=== PATIENT | female | born 1995 | race Caucasian/White ===

== ENCOUNTER 2025-11-10 00:21 | Emergency (ER) | payer OTHER ==
[~2025-11-10] VITALS: Ht 154.9 cm; Wt 63.5 kg
[2025-11-10 00:31] VITALS: O2SAT 98
[2025-11-10] MEDS ORDERED: ACETAMINOPHEN 500MG TABLET PO ONE (01:30)
[2025-11-10] MEDS ORDERED: DIPHENHYDRAMINE 12.5MG/5ML UDC PO ONE (01:30)
[2025-11-10] MEDS ORDERED: METOCLOPRAMIDE HCL 10MG TABLET PO ONE (01:30)
[2025-11-10 01:57] LABS: CLARITY URINE CLEAR (CLEAR); COLOR URINE YELLOW (YELLOW); GLUCOSE URINE NEGATIVE (NEGATIVE); KETONES URINE NEGATIVE (NEGATIVE); LEUKOCYTE ESTERASE URINE 1+ (NEGATIVE); NITRITE URINE NEGATIVE (NEGATIVE); OCCULT BLOOD URINE 1+ (NEGATIVE); PH URINE 6.0 (4.5-8.0); PROTEIN URINE NEGATIVE (NEGATIVE); SPECIFIC GRAVITY URINE 1.021 (1.005-1.030); UROBILINOGEN URINE 0.2 E.U./dL (0.2-1.0)
[2025-11-10 02:08] LABS: *AMPHETAMINES SCREEN URINE NEGATIVE (NEGATIVE); *BARBITURATES SCREEN URINE NEGATIVE (NEGATIVE); *BENZODIAZEPINES SCREEN URINE NEGATIVE (NEGATIVE); *COCAINE SCREEN URINE NEGATIVE (NEGATIVE); METHADONE URINE SCREEN NEGATIVE (NEGATIVE); OPIATES URINE SCREEN NEGATIVE (NEGATIVE); PHENCYCLIDINE URINE SCREEN NEGATIVE (NEGATIVE)
[2025-11-10 02:09] LABS: CANNABINOID URINE SCREEN PRESUMPTIVE POSITIVE (NEGATIVE); ECSTASY MDMA SCREEN URINE NEGATIVE (NEGATIVE)
[2025-11-10 02:22] LABS: HCG SCREEN NEGATIVE
[2025-11-10 02:23] LABS: CREATININE 0.6 mg/dL (0.6-1.0)
[2025-11-10 02:24] LABS: ETHANOL BLOOD < 10 mg/dL (<10); PROTEIN TOTAL 7.5 g/dL (6.0-8.3); UREA NITROGEN BLOOD 16 mg/dL (9-23)
[2025-11-10 02:25] LABS: ASPARTATE AMINOTRANSFERASE 18 IU/L (<34); BILIRUBIN DIRECT 0.1 mg/dL (<=3.0)
[2025-11-10 02:26] LABS: BILIRUBIN TOTAL 0.4 mg/dL (0.1-1.0)
[2025-11-10 02:30] LABS: BACTERIA URINE 2+; SQUAMOUS EPITHELIAL CELL URINE 2+ /lpf (RARE/1+); YEAST URINE 1+
[2025-11-10 03:24] LABS: BASOPHILS % 0.1 % (0.0-2.0); EOSINOPHILS % 0.6 % (0.0-5.0); HEMATOCRIT. 36.6 % (36.0-48.0); HEMOGLOBIN. 12.4 g/dL (12.0-16.0); LYMPHOCYTES % 9.2 % (20.0-50.0); MEAN PLATELET VOLUME 7.6 fl (7.4-10.4); MONOCYTES % 3.7 % (2.0-8.0); NEUTROPHILS % 86.4 % (40.0-76.0); PLATELET 243 x1000/uL (130-400); RED BLOOD CELL COUNT 4.22 mill/uL (4.2-5.4); RED CELL DISTRIBUTION WIDTH 13.0 % (11.6-14.6)
[2025-11-10] MEDS ORDERED: FLUC200T51 MT (04:49)
[2025-11-10 05:20] VITALS: BP 121/67; PULSE 85; RESP 18; TEMP 37; O2SAT 100
== END 2025-11-10 05:21 | disposition home or self-care (01) ==
LOC: ER 00:21
DX: S13.4XXA Sprain of ligaments of cervical spine, initial encounter (principal); R55 Syncope and collapse; B37.49 Other urogenital candidiasis; F12.90 Cannabis use, unspecified, uncomplicated; Z79.899 Other long term (current) drug therapy; W19.XXXA Unspecified fall, initial encounter; Y93.89 Activity, other specified; Y92.89 Other specified places as the place of occurrence of the external cause; Y99.8 Other external cause status
CPT/HCPCS: 80076; 80305; 80048; 81003; 80320; 84703; 83690; 83735; 85025; 87086; 36415; 71045; 70450; 93005; 99285; Z7610 ×3; A4606; G0480